=== PATIENT | male | born 1965 | race Caucasian/White ===

== ENCOUNTER 2019-05-13 08:13 | Inpatient (IN) ==
[2019-05-13] MEDS ORDERED: MoRPHine SULFATE 4 MG/ML 1 ML CARP\\VIAL IV STA ×2 (08:47→10:04)
--- NOTE | 2019-05-13 09:02 | Emergency Department Note ---
History of Present Illness General Chief complaint: Abdominal Pain Stated complaint: ABDOMINAL PAIN Time Seen by Provider: 05/13/19 08:37 History of Present Illness Maximum Pain Intensity: 7 This is a 53-year-old male that presents to the emergency department via private vehicle with complaints of "abdominal pain". The patient states that he has a history of HI, last of which was in 2009 and 2 stents were placed with subsequent 5 vessel bypass. He has been on clopidogrel for this. He notes that over the past few days he has been experiencing epigastric abdominal pain. This does not feel similar to previous HI. He notes some nausea but no vomiting. No change in bowel habits. He has never had this pain before. He rates the pain as a 7/10. Home Medications Home Medications Medication Instructions Recorded Confirmed Type aspirin 81 mg PO QAM 05/13/19 05/13/19 History atorvastatin 40 mg PO HS 05/13/19 05/13/19 History bupropion HCl 150 mg PO BID 05/13/19 05/13/19 History cholecalciferol (vitamin D3) 1,000 unit PO QAM 05/13/19 05/13/19 History [Vitamin D3] clopidogrel 75 mg PO HS 05/13/19 05/13/19 History hydrochlorothiazide 25 mg PO QAM 05/13/19 05/13/19 History lisinopril 40 mg PO QAM 05/13/19 05/13/19 History metoprolol succinate 100 mg PO QAM 05/13/19 05/13/19 History multivitamin 1 tab PO QAM 05/13/19 05/13/19 History Allergies Allergy/AdvReac Type Severity Reaction Status Date / Time Penicillins Allergy Unknown childhood Unverified 05/13/19 09:34 rxn Past Med/Surg History Medical History HTN (hypertension) History of elevated lipids Surgical History Hx of CABG Social History Preferred Language: Mohawk Communication Ability: Effective Beliefs That Will Affect Care: None Current Living Situation: Significant Other Other Information That Helps Us Care for You: No Feels Safe at Home: Yes Safety Concerns: Feels Safe At This Time Smoking Status: Current every day smoker Tobacco Type: cigarettes ; Cigarettes Per Day: 10 ; Do You Dip or Chew Tobacco: No ; Hx Alcohol Use: No Hx Substance Use: No Review of Systems A total of 10 systems reviewed and were otherwise negative Physical Exam Vital Signs Vital Signs - 24 hr 05/13/19 08:27 05/13/19 09:04 05/13/19 10:00 Temperature 36.7 C Temperature Source Oral Sepsis Recent Fever Within 48 Hours No Sepsis New/Unexplained Change in Mental Status No Sepsis Action Taken by Nursing No Action Required Pulse Rate 76 72 Pulse Rate [Apical] 70 Pulse Rhythm Regular Pulse Rhythm [Apical] Regular Pulse Strength [Apical] Normal Respiratory Rate 16 16 17 Respiratory Effort / Characteristics Non-Labored Spontaneous Respiratory Depth Normal Respiratory Pattern Regular Blood Pressure 149/97 H Blood Pressure [Left Arm] 167/102 H Blood Pressure Mean 114 Blood Pressure Mean [Left Arm] 123 Blood Pressure Position [Left Arm] Lying Pulse Oximetry 97 95 94 Oxygen Delivery Method Room Air Room Air Room Air 05/13/19 11:25 05/13/19 12:00 Temperature Temperature Source Sepsis Recent Fever Within 48 Hours Sepsis New/Unexplained Change in Mental Status Sepsis Action Taken by Nursing Pulse Rate Pulse Rate [Apical] 71 Pulse Rhythm Pulse Rhythm [Apical] Regular Pulse Strength [Apical] Normal Respiratory Rate 24 Respiratory Effort / Characteristics Non-Labored Spontaneous Non-Labored Spontaneous Respiratory Depth Normal Normal Respiratory Pattern Regular Regular Blood Pressure Blood Pressure [Left Arm] 174/105 H Blood Pressure Mean Blood Pressure Mean [Left Arm] 128 Blood Pressure Position [Left Arm] Lying Pulse Oximetry 98 Oxygen Delivery Method Room Air Room Air VITAL SIGNS - Vital signs and nursing notes were reviewed. Stable and afebrile. GENERAL -53-year-old male appearing his stated age who is in no acute distress. Communicates well with provider and answers questions appropriately. SKIN - Without rashes. No meningeal or petechial rash. HEAD - NC/AT. EYES - Sclera anicteric. EARS - No deformities of external structures noted on gross examination bilaterally. NOSE - Midline and without cyanosis. No epistaxis or purulent drainage noted. MOUTH/OROPHARYNX - Without perioral cyanosis. NECK - Neck with FROM. No nuchal rigidity. LUNGS - Chest wall symmetric without accessory muscle use, intercostals retractions, or central cyanosis. Normal vesicular breath sounds CTA B/L. No wheezes, rales, or rhonchi appreciated. CARDIAC - RRR with S1/S2. No murmur, rubs, or gallops appreciated. ABDOMEN - Abdominal contour normal without pulsations or visible masses. BS normoactive all four quadrants. There is epigastric abdominal tenderness to palpation. No palpable masses, hepatosplenomegaly, or ascites noted. EXTREMITIES - No clubbing or peripheral cyanosis. No pretibial edema present. +5/5 strength noted in UE/LE bilaterally. NEUROLOGIC - Cranial nerves II through XII grossly intact. PSYCH - A&O, and cooperates fully with examiner. Pt is very pleasant and interacts well with examiner. Course Administered Medications Ioversol (Optiray 320 100ml) 95 ml IV ONCE PRN PRN Reason: Interaction Checking Stop: 05/17/19 10:31 Last Admin: 05/13/19 10:32 Dose: 95 ml Documented by: [id number] Discontinued Medications Al Hydrox/Mg Hydrox/Simethicone () 1 dose PO ONE ONE Stop: 05/13/19 10:05 Last Admin: 05/13/19 10:20 Dose: 1 dose Documented by: [id number] Morphine Sulfate (Morphine Sulfate) 4 mg IV NOW STA Stop: 05/13/19 08:48 Last Admin: 05/13/19 09:12 Dose: 4 mg Documented by: [id number] Morphine Sulfate (Morphine Sulfate) 4 mg IV NOW STA Stop: 05/13/19 10:05 Last Admin: 05/13/19 10:20 Dose: 4 mg Documented by: [id number] Medical Decision Making Laboratory Data Result diagrams: 05/13/19 08:55 05/13/19 08:55 Lab Results 05/13/19 05/13/19 05/13/19 Range/Units 08:55 08:55 08:55 WBC 9.14 (4.8-10.8) K/uL RBC 6.15 H (4.7-6.1) M/uL Hgb 19.4 H (14.0-18.0) g/dL Hct 54.5 H (42-52) % MCV 88.6 (80-100) fL MCH 31.5 (25-34) pg MCHC 35.6 (32-36) g/dL RDW Std Deviation 47.0 H (36.4-46.3) fL RDW Coeff of Gall[place] 14.5 (11.5-14.5) % Plt Count 152 (130-400) K/uL MPV 10.1 (7.4-10.4) fL Immature Gran % (Auto) 0.4 % Neut % (Auto) 73.5 % Lymph % (Auto) 15.3 % [place] % (Auto) 8.4 % Eos % (Auto) 2.2 % Baso % (Auto) 0.2 % Immature Gran # (Auto) 0.04 H (0.00-0.02) K/uL Neut # (Auto) 6.71 H (1.4-6.5) K/uL Lymph # (Auto) 1.40 (1.2-3.4) K/uL [place] # (Auto) 0.77 H (0.11-0.59) K/uL Eos # (Auto) 0.20 (0-0.5) K/uL Baso # (Auto) 0.02 (0-0.2) K/uL PT 10.7 (9.0-12.0) Seconds INR 1.0 (0.9-1.1) APTT 26.3 (21.0-31.0) Seconds PTT Ratio 1.0 Sodium 143 (136-145) mmol/L Potassium 3.8 (3.5-5.1) mmol/L Chloride 108 H (98-107) mmol/L Carbon Dioxide 30 (21-32) mmol/L Anion Gap 5.0 (3-11) BUN 19 H (7-18) mg/dl Creatinine 1.03 (0.6-1.4) mg/dl Est Cr Clr Drug Dosing 83.7 ml/min Est GFR ( Amer) 94.3 Est GFR (Non-Af Amer) 81.4 BUN/Creatinine Ratio 18.5 (10-20) Glucose 109 H (70-99) mg/dl Calcium 9.3 (8.5-10.1) mg/dl Magnesium 2.3 (1.8-2.4) mg/dl Total Bilirubin 0.5 (0.2-1) mg/dl AST 22 (15-37) U/L ALT 36 (12-78) U/L Alkaline Phosphatase 104 (45-117) U/L POC Troponin I (0-0.045) ng/ml Troponin I < 0.015 (0-0.045) ng/ml Total Protein 7.9 (6.4-8.2) gm/dl Albumin 3.8 (3.4-5.0) gm/dl Globulin 4.1 H (2.5-4.0) gm/dl Albumin/Globulin Ratio 0.9 (0.9-2) Triglycerides (0-150) mg/dl Lipase 215 (73-393) U/L TSH 1.860 (0.300-4.500) uIu/ml Urine Color Urine Appearance (Clear) Urine pH (4.5-7.5) Ur Specific [place] (1.000-1.030) Urine Protein (Negative) Urine Glucose (UA) (Negative) Urine Ketones (Negative) Urine Blood (Negative) Urine Nitrite (Negative) Urine Bilirubin (Negative) Urine Urobilinogen (Negative) Ur Leukocyte Esterase (Negative) Urine WBC (Auto) (0-5) /hpf Urine RBC (Auto) (0-4) /hpf U Hyaline Cast (Auto) (0-5) /lpf U Epithel Cells (Auto) (0-5) /lpf Urine Bacteria (Auto) (Negative) 05/13/19 05/13/19 05/13/19 Range/Units 08:55 09:02 09:11 WBC (4.8-10.8) K/uL RBC (4.7-6.1) M/uL Hgb (14.0-18.0) g/dL Hct (42-52) % MCV (80-100) fL MCH (25-34) pg MCHC (32-36) g/dL RDW Std Deviation (36.4-46.3) fL RDW Coeff of Gall[place] (11.5-14.5) % Plt Count (130-400) K/uL MPV (7.4-10.4) fL Immature Gran % (Auto) % Neut % (Auto) % Lymph % (Auto) % [place] % (Auto) % Eos % (Auto) % Baso % (Auto) % Immature Gran # (Auto) (0.00-0.02) K/uL Neut # (Auto) (1.4-6.5) K/uL Lymph # (Auto) (1.2-3.4) K/uL [place] # (Auto) (0.11-0.59) K/uL Eos # (Auto) (0-0.5) K/uL Baso # (Auto) (0-0.2) K/uL PT (9.0-12.0) Seconds INR (0.9-1.1) APTT (21.0-31.0) Seconds PTT Ratio Sodium (136-145) mmol/L Potassium (3.5-5.1) mmol/L Chloride (98-107) mmol/L Carbon Dioxide (21-32) mmol/L Anion Gap (3-11) BUN (7-18) mg/dl Creatinine (0.6-1.4) mg/dl Est Cr Clr Drug Dosing ml/min Est GFR ( Amer) Est GFR (Non-Af Amer) BUN/Creatinine Ratio (10-20) Glucose (70-99) mg/dl Calcium (8.5-10.1) mg/dl Magnesium (1.8-2.4) mg/dl Total Bilirubin (0.2-1) mg/dl AST (15-37) U/L ALT (12-78) U/L Alkaline Phosphatase (45-117) U/L POC Troponin I < 0.03 (0-0.045) ng/ml Troponin I (0-0.045) ng/ml Total Protein (6.4-8.2) gm/dl Albumin (3.4-5.0) gm/dl Globulin (2.5-4.0) gm/dl Albumin/Globulin Ratio (0.9-2) Triglycerides 91 (0-150) mg/dl Lipase (73-393) U/L TSH (0.300-4.500) uIu/ml Urine Color Yellow Urine Appearance Clear (Clear) Urine pH 5.0 (4.5-7.5) Ur Specific [place] 1.020 (1.000-1.030) Urine Protein Negative (Negative) Urine Glucose (UA) Negative (Negative) Urine Ketones Negative (Negative) Urine Blood Trace H (Negative) Urine Nitrite Negative (Negative) Urine Bilirubin Negative (Negative) Urine Urobilinogen Negative (Negative) Ur Leukocyte Esterase Trace H (Negative) Urine WBC (Auto) 1-5 (0-5) /hpf Urine RBC (Auto) 0-4 (0-4) /hpf U Hyaline Cast (Auto) 1-5 (0-5) /lpf U Epithel Cells (Auto) 20-30 H (0-5) /lpf Urine Bacteria (Auto) Negative (Negative) Imaging Data Radiologist's Impression: XR chest 1V portable CLINICAL HISTORY: 53 years-old Male presenting with epigastric abd pain. TECHNIQUE: Portable upright AP view of the chest was obtained. COMPARISON: None. FINDINGS: Median sternotomy wires and mediastinal surgical clips. Atherosclerosis of the aortic arch. Cardiac silhouette borderline enlarged. No focal opacity. No large effusion or pneumothorax. Cervical fusion hardware noted. Upper abdomen normal. IMPRESSION: 1. No acute cardiopulmonary disease. Electronically signed by: Fan Arora M.D. 05/13/2019 9:[address] abd pelvis IV con only CLINICAL HISTORY: 53 years-old Male presenting with epigastric abd pain. TECHNIQUE: Multidetector CT of the abdomen and pelvis was performed after the administration of intravenous contrast. IV contrast: 95 mL of Optiray 320. One or more dose lowering techniques were used consistent with the principles of ALARA (as low as reasonably achievable), including automatic exposure control, mA or kV adjustment to individual patient size, and/or use of iterative reconstruction. COMPARISON: None. CT DOSE (mGy.cm): The estimated cumulative dose is 395.22 mGy.cm. FINDINGS: Benefits Advisor topogram: Unremarkable. Lung bases: Normal heart size. No pericardial or pleural effusion. Minimal dependent changes likely atelectasis. Liver: Normal morphology. No liver lesion. Patent hepatic vasculature. Biliary: No intrahepatic or extrahepatic biliary ductal dilatation. Normal gallbladder. Pancreas: Trace peripancreatic fat stranding along the pancreatic head and uncinate process. Few punctate calcifications in the pancreatic head possibly parenchymal or ductal. No peripancreatic fluid collection. No pancreatic parenchymal hypoenhancement. Spleen: Normal. Adrenal glands: Normal. Kidneys and ureters: Normal renal parenchyma. No nephrolithiasis or hydronephrosis. Trace renovascular calcification. Ureters nondistended. Bladder: Normal. Pelvic organs: Prostate and seminal vesicles normal. Bowel: Normal appendix. No bowel obstruction. Peritoneal cavity: No free fluid or intraperitoneal gas. Trace retroperitoneal fluid in the peripancreatic region. Lymph nodes: Few nonspecific mildly enlarged lymph nodes in the peripancreatic region likely reactive. Vasculature: Atherosclerosis of the normal caliber abdominal aorta. IVC patent. Abdominal wall: Normal. Musculoskeletal: Degenerative changes of the spine. IMPRESSION: 1. Interstitial edematous pancreatitis in the region of the pancreatic head and uncinate process. No acute peripancreatic fluid collection. No necrosis. 2. Punctate calcifications in the region of the pancreatic head matter be parenchymal, suggesting chronic pancreatitis, or ductal. Choledocholithiasis not excluded. Electronically signed by: Fan Arora M.D. 05/13/2019 10:45 AM MDM Narrative Patient was seen and evaluated as above B04. Review was performed of nursing notes and vital signs. After obtaining a thorough history and physical examination the above work up was performed. He presents to us today with epigastric abdominal pain. He is nontoxic on exam. It is reproducible in the epigastric region on palpation. Chest x-ray negative. He does have an extensive cardiac history therefore some focus was also placed in the cardiac region. EKG reveals posterior fascicular block but no definite evidence of a STEMI. Troponin x1 is negative. The CBC reveals no leukocytosis but there is evidence of hemoconcentration with hemoglobin at 19.4. There is no evidence of metabolic emergent process. Lipase negative. Urinalysis does not reveal infection. I did elect to obtain a CT scan given the patient's persistence of pain despite IV morphine x1 and found acute pancreatitis. I discussed these findings with the hospitalist as it was felt that given the patient's cardiac history and also pancreatic findings that further evaluation and management in the inpatient setting would be warranted. Patient was in agreement. Please refer to further documentation regarding his stay. Case was discussed with the attending physician. In the evaluation and treatment of this patient, the following differential diagnoses were considered: ASC, HI, Pneumonia, GERD, Cholecystitis, Ascending Cholangitis, Cholydocholithiasis, Bowel Obstruction, PE, Amongst Others. Impression & Plan Pancreatitis Discharge Plan Visit Data Chief Complaint: Abdominal Pain Stated Complaint: ABDOMINAL PAIN ED Provider: Herman Musa ED Midlevel Provider: Chacho Hall Discharge Problem: Pancreatitis Patient Disposition: Admitted As Inpatient Condition: Good Forms Stand Alone Forms: Call Back Authorization, [facility], Important Visit Information Prescriptions Prescriptions: No Action multivitamin Tablet 1 tab PO QAM RF: 0 atorvastatin 40 mg tablet 40 mg PO HS RF: 0 bupropion HCl 150 mg tablet sustained-release 12 hr 150 mg PO BID RF: 0 metoprolol succinate 100 mg tablet extended release 24 hr 100 mg PO QAM RF: 0 clopidogrel 75 mg tablet 75 mg PO HS RF: 0 aspirin 81 mg tablet,delayed release (DR/EC) 81 mg PO QAM RF: 0 hydrochlorothiazide 25 mg tablet 25 mg PO QAM RF: 0 lisinopril 40 mg tablet 40 mg PO QAM RF: 0 cholecalciferol (vitamin D3) [Vitamin D3] 1,000 unit (25 mcg) Tablet 1,000 unit PO QAM RF: 0 Referrals Referrals: Iram Hurd DO [Primary Care Provider] -
[2019-05-13 09:08] LABS: Basophils # (auto) 0.02 K/uL (0-0.2); Basophils % (auto) 0.2 %; Eosinophils % (auto) 2.2 %; Hematocrit (blood only) 54.5 % (42-52); Hemoglobin 19.4 g/dL (14.0-18.0); Immature Granulocytes # (auto) 0.04 K/uL (0.00-0.02); Immature Granulocytes % (auto) 0.4 %; Lymphocytes % (auto) 15.3 %; Mean Corpuscular Hgb Conc 35.6 g/dL (32-36); Mean Corpuscular Volume 88.6 fL (80-100); Mean Platelet Volume 10.1 fL (7.4-10.4); Monocytes # (auto) 0.77 K/uL (0.11-0.59); Monocytes % (auto) 8.4 %; Neutrophils # (auto) 6.71 K/uL (1.4-6.5); Neutrophils % (auto) 73.5 %; Platelet Count 152 K/uL (130-400); RDW Coefficient of Variation 14.5 % (11.5-14.5); Red Blood Count 6.15 M/uL (4.7-6.1); White Blood Count 9.14 K/uL (4.8-10.8)
[2019-05-13 09:19] LABS: Partial Thromboplastin Time 26.3 Seconds (21.0-31.0); Prothrombin Time 10.7 Seconds (9.0-12.0)
[2019-05-13 09:23] LABS: Alanine Aminotransferase 36 U/L (12-78); Albumin Level 3.8 gm/dl (3.4-5.0); Aspartate Aminotransferase 22 U/L (15-37); BUN Creatinine Ratio 18.5 (10-20); Blood Urea Nitrogen 19 mg/dl (7-18); Calcium 9.3 mg/dl (8.5-10.1); Carbon Dioxide 30 mmol/L (21-32); Chloride 108 mmol/L (98-107); Creatinine Clr Calc Pharmacy 83.7 ml/min; Est GFR (African American) 94.3; Est GFR (Non-African American) 81.4; Glucose 109 mg/dl (70-99); Magnesium 2.3 mg/dl (1.8-2.4); Potassium 3.8 mmol/L (3.5-5.1); Sodium 143 mmol/L (136-145)
[2019-05-13 09:26] LABS: Appearance Urine Clear (Clear); Bacteria Urine Automated Negative (Negative); Bilirubin Urine Negative (Negative); Blood Urine Trace (Negative); Color Urine Yellow; Epithelial Cell Urine Auto 20-30 /lpf (0-5); Glucose Urine UA Negative (Negative); Ketones Urine Negative (Negative); Leukocyte Esterase Urine Trace (Negative); Nitrite Urine Negative (Negative); Protein Urine Negative (Negative); RBC Urine Automated 0-4 /hpf (0-4); Urobilinogen Urine Negative (Negative)
--- NOTE | 2019-05-13 09:32 | XRay Report ---
XR chest 1V portable CLINICAL HISTORY: 53 years-old Male presenting with epigastric abd pain. TECHNIQUE: Portable upright AP view of the chest was obtained. COMPARISON: None. FINDINGS: Median sternotomy wires and mediastinal surgical clips. Atherosclerosis of the aortic arch. Cardiac s ilhouette borderline enlarged. No focal opacity. No large effusion or pneumothorax. Cervical fusion h ardware noted. Upper abdomen normal. IMPRESSION: 1. No acute cardiopulmonary disease. Electronically signed by: Fan Arora M.D. 05/13/2019 9:31 AM
[2019-05-13 09:34] LABS: Albumin Globulin Ratio 0.9 (0.9-2); Alkaline Phosphatase 104 U/L (45-117); Bilirubin,Total 0.5 mg/dl (0.2-1); Globulin 4.1 gm/dl (2.5-4.0); Total Protein 7.9 gm/dl (6.4-8.2); Troponin I < 0.015 ng/ml (0-0.045)
[2019-05-13] MEDS ORDERED: GI COCKTAIL ED USE PO ONE (10:04)
[2019-05-13] MEDS ORDERED: IOVERSOL 100ml IV PRN (10:32)
--- NOTE | 2019-05-13 10:47 | CT Scan Report ---
CT abd pelvis IV con only CLINICAL HISTORY: 53 years-old Male presenting with epigastric abd pain. TECHNIQUE: Multidetector CT of the abdomen and pelvis was performed after the administration of intra venous contrast. IV contrast: 95 mL of Optiray 320. One or more dose lowering techniques were used co nsistent with the principles of ALARA (as low as reasonably achievable), including automatic exposure control, mA or kV adjustment to individual patient size, and/or use of iterative reconstruction. COMPARISON: None. CT DOSE (mGy.cm): The estimated cumulative dose is 395.22 mGy.cm. FINDINGS: Coding Auditor topogram: Unremarkable. Lung bases: Normal heart size. No pericardial or pleural effusion. Minimal dependent changes likely a telectasis. Liver: Normal morphology. No liver lesion. Patent hepatic vasculature. Biliary: No intrahepatic or extrahepatic biliary ductal dilatation. Normal gallbladder. Pancreas: Trace peripancreatic fat stranding along the pancreatic head and uncinate process. Few punc strong calcifications in the pancreatic head possibly parenchymal or ductal. No peripancreatic fluid co llection. No pancreatic parenchymal hypoenhancement. Spleen: Normal. Adrenal glands: Normal. Kidneys and ureters: Normal renal parenchyma. No nephrolithiasis or hydronephrosis. Trace renovascula r calcification. Ureters nondistended. Bladder: Normal. Pelvic organs: Prostate and seminal vesicles normal. Bowel: Normal appendix. No bowel obstruction. Peritoneal cavity: No free fluid or intraperitoneal gas. Trace retroperitoneal fluid in the peripancr eatic region. Lymph nodes: Few nonspecific mildly enlarged lymph nodes in the peripancreatic region likely reactive . Vasculature: Atherosclerosis of the normal caliber abdominal aorta. IVC patent. Abdominal wall: Normal. Musculoskeletal: Degenerative changes of the spine. IMPRESSION: 1. Interstitial edematous pancreatitis in the region of the pancreatic head and uncinate process. No acute peripancreatic fluid collection. No necrosis. 2. Punctate calcifications in the region of the pancreatic head matter be parenchymal, suggesting ch ronic pancreatitis, or ductal. Choledocholithiasis not excluded. Electronically signed by: Fan Arora M.D. 05/13/2019 10:45 AM
[2019-05-13] MEDS ORDERED: OXYCODONE/ACETAMINOPHEN 5mg/325mg TAB PO PRN (12:13)
[2019-05-13] MEDS ORDERED: MoRPHine SULFATE 2 MG/ML CARP IV PRN (12:13)
[2019-05-13 12:52] LABS: Chol HDL Ratio 4; Cholesterol 163 mg/dl (0-200); HDL Cholesterol 41 mg/dl; LDL Cholesterol Calculated 103 mg/dl; Triglycerides 94 mg/dl (0-150); VLDL Cholesterol 19 mg/dl
[2019-05-13] MEDS ORDERED: ZOLPIDEM TARTRATE 5 MG TAB PO PRN (13:35)
[2019-05-13] MEDS ORDERED: MAGNESIUM HYDROXIDE SUSP 30 ML UDC PO PRN (13:35)
[2019-05-13] MEDS ORDERED: ONDANSETRON INJ 2 MG/ML 2 ML VIAL IV PRN (13:35)
[2019-05-13] MEDS ORDERED: POLYETHYLENE (MIRALAX) 17 GM PACK PO PRN (13:35)
[2019-05-13] MEDS ORDERED: ALUMINUM/MAGNESIUM SUSP 30 ML UDC PO PRN (13:35)
[2019-05-13] MEDS ORDERED: HydrALAZINE 10 MG TAB PO PRN (13:35)
[2019-05-13] MEDS ORDERED: PROMETHAZINE HCL 25 MG in SODIUM CHLORIDE 0.9% 50 ML IV PRN (13:48)
[2019-05-13] MEDS: SODIUM CHLORIDE 0.9% 1000ML 1,000 ML IV SCH (15:44)
[2019-05-13] MEDS: METOPROLOL SUCC 50MG EXT REL TAB PO SCH (15:54)
[2019-05-13] MEDS: CIPROFLOXACIN 400 MG/200 ML BAG IV SCH (15:54)
[2019-05-13] MEDS: metroNIDAZOLE 500 MG/100 ML BAG IV SCH ×2 (15:54→23:37)
--- NOTE | 2019-05-13 16:05 | Magnetic Resonance Report ---
MR MRCP CLINICAL HISTORY: 53 years-old Male presenting with acute pancreatitis. TECHNIQUE: Multisequence, multiplanar MR imaging of the abdomen was performed without the use of intr avenous contrast. Dedicated MRCP protocol was utilized. 3-D volumetric and/or maximum intensity proje ction (MIP) images were subsequently reconstructed for review. IV contrast: None. COMPARISON: CT performed earlier today. FINDINGS: Localizer images: Unremarkable. Lung bases: Normal heart size. No pericardial or pleural effusion. Lung base clear. Liver: Normal morphology. Biliary: Conventional intrahepatic biliary bifurcation. No intrahepatic or extrahepatic biliary ducta l dilatation. No choledocholithiasis. Normal gallbladder. Pancreas: Peripancreatic inflammatory change in the region of the pancreatic head and uncinate proces s. No parenchymal or peripancreatic fluid collection. No pancreatic ductal dilatation. Spleen: Normal noncontrast appearance. Adrenal glands: Normal noncontrast appearance. Kidneys and ureters: Normal noncontrast appearance. No hydronephrosis. Normal ureters. Bowel: Normal noncontrast appearance. No bowel obstruction. Peritoneal cavity: No free fluid. Lymph nodes: No gross lymphadenopathy allowing for noncontrast technique. Vasculature: Normal noncontrast appearance. Abdominal wall: Normal. Musculoskeletal: Normal. IMPRESSION: 1. No cholelithiasis or choledocholithiasis. No biliary ductal dilatation. 2. Redemonstration of the interstitial edematous pancreatitis. Electronically signed by: Fan Arora M.D. 05/13/2019 4:04 PM
--- NOTE | 2019-05-13 16:55 | History & Physical Report ---
Date of Service May 13, 2019 Assessment & Plan (1) Pancreatitis: Acute pancreatitis -Admit to PCU on telemetry -Vital signs every 4 hours -IV normal saline 100 cc/h -Keep n.p.o. -GI consult -Pain management -Started empirically IV ciprofloxacin 400 mg daily and metronidazole 500 mg IV every 8 hours -DVT prophylaxis with Lovenox SC 40 mg daily -Full code Present on Admission?: Yes (2) Hypertension: Stable, continue home dose of aspirin 81 mg p.o. every morning, lisinopril 40 mg p.o. every morning, metoprolol succinate 100 mg p.o. every morning. Present on Admission?: Yes (3) Hx of CABG: Continue clopidogrel 75 mg p.o. daily and aspirin 81 mg p.o. daily Present on Admission?: Yes (4) Hyperlipidemia: Continue atorvastatin 40 mg p.o. nightly Present on Admission?: Yes (5) Coronary artery disease: As discussed above Present on Admission?: Yes (6) Nicotine dependence: Patient said that he cut down on smoking from 1 pack/day to 5 cigarettes/day. He refused nicotine patch. He prefers to take bupropion 150 mg p.o. twice daily Present on Admission?: Yes History of Present Illness Chief Complaint: Abdominal pain Primary Care Provider: Iram Hurd, 53 years old male past medical history of coronary artery disease and CABG 5 vessels, hypertension and hyperlipidemia presents to the emergency room with complaint of abdominal pain that started on Tuesday and did not improve since then. Patient said he thought that he pulled a muscle and he took some ibuprofen for the upper abdominal pain but that did not relieve the pain. Patient takes regularly his cardiac medication and he just moved from [place] approximately 1 year ago. Patient said that he is trying to get appointment with cardiology but for 1 year he did not see dish stacker. Patient reports that CABG surgery was done in 2009 in [place] and since then he is doing okay. Patient reports no fever chills headache shortness of breath frequency urgency melena hemoptysis. Labs reviewed: White blood cell count 9.14 hemoglobin 19.4 hematocrit 54.5 platelets 152, INR 1.0 PT 10.7 PTT 1, sodium 143 potassium 3.8 chloride 108 BUN 19 creatinine 1.03 GFR 83.7 glucose 109, ALT 36 AST 22, troponin less than 0.015, triglycerides 94, cholesterol 163, LDL 103, VLDL 19, HDL 41, lipase 215, TSH 1.860. MRCP was done and showed no cholelithiasis or choledocholithiasis. No biliary duct dilatation. Redemonstrated of the interstitial adenomatosis pancreatitis. Allergies Allergy/AdvReac Type Severity Reaction Status Date / Time Penicillins Allergy Unknown childhood Unverified 05/13/19 09:34 rxn Home Medications Home Medications Medication Instructions Recorded Confirmed Type aspirin 81 mg PO QAM 05/13/19 05/13/19 History atorvastatin 40 mg PO HS 05/13/19 05/13/19 History bupropion HCl 150 mg PO BID 05/13/19 05/13/19 History cholecalciferol (vitamin D3) 1,000 unit PO QAM 05/13/19 05/13/19 History [Vitamin D3] clopidogrel 75 mg PO HS 05/13/19 05/13/19 History hydrochlorothiazide 25 mg PO QAM 05/13/19 05/13/19 History lisinopril 40 mg PO QAM 05/13/19 05/13/19 History metoprolol succinate 100 mg PO QAM 05/13/19 05/13/19 History multivitamin 1 tab PO QAM 05/13/19 05/13/19 History Past Med/Surg History Medical History HTN (hypertension) History of elevated lipids Surgical History Hx of CABG Social History Preferred Language: [place] Communication Ability: Effective Beliefs That Will Affect Care: None Current Living Situation: Significant Other Other Information That Helps Us Care for You: No Feels Safe at Home: Yes Safety Concerns: Feels Safe At This Time Smoking Status: Current every day smoker Tobacco Type: cigarettes ; Cigarettes Per Day: 10 ; Do You Dip or Chew Tobacco: No ; Hx Alcohol Use: No Hx Substance Use: No Review of Systems Review of Systems: All systems reviewed & are unremarkable except as noted in HPI & below Physical Exam Constitutional: WD/WN, vitals as above well developed and + obese Eyes: PERRL, conjunctivae normal, anicteric sclerae ENMT: external ear and nose normal, oropharynx normal Neck: trachea midline, no thyromegaly Respiratory: normal respiratory effort, + dullness to percussion and + hyperresonance to percussion Auscultation: + wheezes Cardiovascular: RRR, no murmur, no edema Chest (Breasts): normal inspection/palpation of breasts Gastrointestinal (Abdomen): normal bowel sounds, soft, nontender, no hepatosplenomegaly Inspection/Auscultation: + abdomen distended (Mildly distended) Percussion/Palpation: + abdomen tender (Mildly tender), abdomen soft, + dullness to percussion and + tympanic to percussion Musculoskeletal: no cyanosis or clubbing, extremities motor strength 5/5 Skin: no rashes, warm and dry Neurologic: patellar DTR's 2+ bilat, sensation intact Psychiatric: A+Ox3, euthymic affect Genitourinary: no testicular masses, no penis abnormality Lymphatic: no cervical or axillary lymphadenopathy Results & Data Vital Signs (Past 12 Hours) Vital Signs Temp Pulse Pulse Resp BP BP Pulse Ox 05/13/19 15:17 36.5 C 71 18 180/102 H 94 05/13/19 13:35 36.7 C 70 16 166/106 H 96 05/13/19 13:20 69 15 167/103 H 96 05/13/19 12:00 71 24 174/105 H 98 05/13/19 10:00 70 17 167/102 H 94 05/13/19 09:04 72 16 95 05/13/19 08:27 36.7 C 76 16 149/97 H 97 Code Status & VTE Plan Code Status Full code VTE Prophylaxis Plan VTE Prophylaxis will be ordered: Yes PG Care Time/CCT Total # of Minutes Spent Total Time Spent with Patient: Total time spent is greater than 50% in coordination of care (as documented) at patient's floor/unit and/or counseling patient:
[2019-05-13] MEDS: ENOXAPARIN INJ 40 MG/0.4 ML SYR SQ SCH (17:33)
[2019-05-13] MEDS: BuPROPion SR 150 MG TABCR PO SCH (17:33)
[2019-05-13] MEDS: NITROGLYCERIN 2% OINTMENT 30GM TUBE EXT SCH ×2 (17:34→23:36)
[2019-05-13] MEDS: ACETAMINOPHEN 325 MG TAB PO PRN (18:18)
[2019-05-13] MEDS ORDERED: CLOPIDOGREL BISULFATE 75 MG TAB PO SCH (21:00)
[2019-05-13] MEDS ORDERED: ATORVASTATIN 40 MG TAB PO SCH (21:00)
[2019-05-14] MEDS: ACETAMINOPHEN 325 MG TAB PO PRN ×2 (00:39→05:17)
[2019-05-14] MEDS: SODIUM CHLORIDE 0.9% 1000ML 1,000 ML IV SCH ×2 (02:15→13:18)
[2019-05-14] MEDS: CIPROFLOXACIN 400 MG/200 ML BAG IV SCH ×2 (03:33→17:05)
[2019-05-14] MEDS: NITROGLYCERIN 2% OINTMENT 30GM TUBE EXT SCH (05:14)
[2019-05-14 06:29] LABS: Basophils # (auto) 0.01 K/uL (0-0.2); Basophils % (auto) 0.1 %; Eosinophils # (auto) 0.18 K/uL (0-0.5); Eosinophils % (auto) 1.9 %; Hemoglobin 16.4 g/dL (14.0-18.0); Immature Granulocytes # (auto) 0.03 K/uL (0.00-0.02); Immature Granulocytes % (auto) 0.3 %; Lymphocytes # (auto) 1.83 K/uL (1.2-3.4); Lymphocytes % (auto) 19.1 %; Mean Corpuscular Hgb Conc 34.9 g/dL (32-36); Mean Corpuscular Volume 88.3 fL (80-100); Mean Platelet Volume 10.2 fL (7.4-10.4); Monocytes % (auto) 7.3 %; Neutrophils # (auto) 6.83 K/uL (1.4-6.5); Neutrophils % (auto) 71.3 %; Platelet Count 128 K/uL (130-400); RDW Coefficient of Variation 14.1 % (11.5-14.5); RDW Standard Deviation 45.7 fL (36.4-46.3); Red Blood Count 5.32 M/uL (4.7-6.1); White Blood Count 9.58 K/uL (4.8-10.8)
[2019-05-14 06:57] LABS: Albumin Globulin Ratio 0.9 (0.9-2); BUN Creatinine Ratio 16.4 (10-20); Bilirubin,Total 0.6 mg/dl (0.2-1); Calcium 7.9 mg/dl (8.5-10.1); Creatinine Clr Calc Pharmacy 114.9 ml/min; Est GFR (African American) 119.7; Est GFR (Non-African American) 103.3; Globulin 3.3 gm/dl (2.5-4.0); Potassium 3.1 mmol/L (3.5-5.1); Total Protein 6.3 gm/dl (6.4-8.2)
[2019-05-14] MEDS: metroNIDAZOLE 500 MG/100 ML BAG IV SCH ×2 (08:28→16:05)
[2019-05-14] MEDS: METOPROLOL SUCC 50MG EXT REL TAB PO SCH (08:28)
[2019-05-14] MEDS: BuPROPion SR 150 MG TABCR PO SCH ×2 (08:28→16:04)
[2019-05-14] MEDS ORDERED: CHOLECALCIFEROL 1,000 UNITS TAB PO SCH (09:00)
[2019-05-14] MEDS ORDERED: ASPIRIN 81 MG ECTAB PO SCH (09:00)
[2019-05-14] MEDS ORDERED: LISINOPRIL 40 MG TAB PO SCH (09:00)
[2019-05-14] MEDS ORDERED: FAMOTIDINE 20 MG in SYRINGE 3 ML IV SCH (09:00)
[2019-05-14] MEDS ORDERED: MULTIVITAMIN TAB PO SCH (09:00)
[2019-05-14] MEDS ORDERED: POTASSIUM CHLORIDE 20 MEQ TABCR PO STA (10:45)
[2019-05-14] MEDS ORDERED: AMLODIPINE BESYLATE 5 MG TAB PO SCH (11:00)
[2019-05-14] MEDS ORDERED: FUROSEMIDE 20 MG TAB PO SCH (11:00)
--- NOTE | 2019-05-14 11:29 | History & Physical Report ---
Date of Service May 14, 2019 History of Present Illness Chief Complaint: Abdominal pain 53 yo male for which GI is being consulted for abdominal pain. Admitted yesterday with abdominal pain - lipase and lft's normal but imaging MRCP showing edematous pancreatitis. Received IV fulids, empiric cipro/flagyl, pepcid. Pain improved this morning. feeling better. Etiology not gallstones per workup thus far. Denies alcohol use. 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 He reports when he came in his abdominal pain was 7/10 and now is 0/10. Tolerated lunch. Denies recent travel. No history of known autoimmune problems. No weight loss or pale colored stools. No history of recent travel, bug bites, new medications or supplements. Prior CABG in the past in 2009 - recent dose adjustment of Lisinopril to bid, on hctz as an outpatient. Primary Care Provider: Iram Hurd DO Allergies Allergy/AdvReac Type Severity Reaction Status Date / Time Penicillins Allergy Unknown childhood Unverified 05/13/19 09:34 rxn Home Medications Home Medications Medication Instructions Recorded Confirmed Type aspirin 81 mg PO QAM 05/13/19 05/13/19 History atorvastatin 40 mg PO HS 05/13/19 05/13/19 History bupropion HCl 150 mg PO BID 05/13/19 05/13/19 History cholecalciferol (vitamin D3) 1,000 unit PO QAM 05/13/19 05/13/19 History [Vitamin D3] clopidogrel 75 mg PO HS 05/13/19 05/13/19 History hydrochlorothiazide 25 mg PO QAM 05/13/19 05/13/19 History lisinopril 40 mg PO QAM 05/13/19 05/13/19 History metoprolol succinate 100 mg PO QAM 05/13/19 05/13/19 History multivitamin 1 tab PO QAM 05/13/19 05/13/19 History Past Med/Surg History Medical History HTN (hypertension) History of elevated lipids Surgical History Hx of CABG Social History Preferred Language: Pashto Communication Ability: Effective Beliefs That Will Affect Care: None Current Living Situation: Significant Other Other Information That Helps Us Care for You: No Feels Safe at Home: Yes Safety Concerns: Feels Safe At This Time Smoking Status: Current every day smoker Tobacco Type: cigarettes ; Cigarettes Per Day: 10 ; Do You Dip or Chew Tobacco: No ; Hx Alcohol Use: No Hx Substance Use: No Review of Systems All systems reviewed & are unremarkable except as noted in HPI & below Physical Exam Physical Exam: Well nourished male in nad Constitutional: well developed and well nourished; no acute distress Eyes: No scleral icterus Gastrointestinal (Abdomen): normal bowel sounds, soft, nontender, no hepatosplenomegaly Neurologic: PERRL, EOMI, accommodation nl, no face palsy, no dysarthria Results & Data Vital Signs (Past 12 Hours) Vital Signs Temp Pulse Resp BP Pulse Ox 05/14/19 07:02 36.5 C 67 16 165/98 H 95 05/14/19 03:40 36.6 C 67 16 144/89 H 94 05/14/19 00:00 36.9 C 68 16 154/94 H 96 CBC/lft's reviewed and normal CT scan abdomen and MRCP reviewed. Code Status & VTE Plan VTE Prophylaxis Plan VTE Prophylaxis will be ordered: Yes Supervising Physician Co-Signing Physician Notes 53 yo male with prior cabg in 2009, admitted with abdominal pain,a nd fount to have pancreatitis on imaging. Symptomatically improving with IV fluids overnite and Pepcid. Now tolerating PO. Etiology- gallstones have been ruled out, ? tg. denies etoh use Would check IgG4 for completeness to rule out autoimmune pancreatitis. Tolerate diet as tolerated given now further pain. Outpt eus in 6-8 weeks.
[2019-05-14] MEDS: ENOXAPARIN INJ 40 MG/0.4 ML SYR SQ SCH (17:25)
--- NOTE | 2019-05-14 17:56 | Discharge Summary ---
Date of Service May 14, 2019 Admission HPI Per Admitting Provider 53 years old male past medical history of coronary artery disease and CABG 5 vessels, hypertension and hyperlipidemia presents to the emergency room with complaint of abdominal pain that started on Tuesday and did not improve since then. Patient said he thought that he pulled a muscle and he took some ibuprofen for the upper abdominal pain but that did not relieve the pain. Patient takes regularly his cardiac medication and he just moved from [place] approximately 1 year ago. Patient said that he is trying to get appointment with cardiology but for 1 year he did not see ballast regulator operator. Patient reports that CABG surgery was done in 2009 in [place] and since then he is doing okay. Patient reports no fever chills headache shortness of breath frequency urgency melena hemoptysis. Labs reviewed: White blood cell count 9.14 hemoglobin 19.4 hematocrit 54.5 platelets 152, INR 1.0 PT 10.7 PTT 1, sodium 143 potassium 3.8 chloride 108 BUN 19 creatinine 1.03 GFR 83.7 glucose 109, ALT 36 AST 22, troponin less than 0.015, triglycerides 94, cholesterol 163, LDL 103, VLDL 19, HDL 41, lipase 215, TSH 1.860. MRCP was done and showed no cholelithiasis or choledocholithiasis. No biliary duct dilatation. Re demonstrated of the interstitial adenomatosis pancreatitis. Principal Diagnosis Acute pancreatitis Discharge Exam Constitutional WD/WN, vitals as above Eyes PERRL, conjunctivae normal, anicteric sclerae ENMT external ear and nose normal, oropharynx normal Neck trachea midline, no thyromegaly Respiratory normal respiratory effort, lungs clear to auscultation Cardiovascular RRR, no murmur, no edema Gastrointestinal (Abdomen) normal bowel sounds, soft, nontender, no hepatosplenomegaly Musculoskeletal Extremities: extremities normal to inspection; no cyanosis and no clubbing Skin no rashes, warm and dry Neurologic moves all extremities and awake; no focal motor deficits Psychiatric A+Ox3, euthymic affect Discharge Data Allergies Allergy/AdvReac Type Severity Reaction Status Date / Time Penicillins Allergy Unknown childhood Unverified 05/13/19 09:34 rxn Consultations Gastroenterology Ordered Studies 05/13/19 10:04 CT abd pelvis IV con only Stat 05/13/19 13:55 MR MRCP Routine Hospital Course (1) Pancreatitis: Patient presented with a mild acute pancreatitis with epigastric abdominal pain. Found to have inflammation of the pancreas on CT scan. Triglycerides within normal limits, no cholelithiasis or choledocholithiasis on MRCP, no history of alcohol use at all. Lipase was actually normal. LFTs normal. He did have his lisinopril increased to 40 mg daily approximately 1 month ago. He has been on hydrochlorothiazide for many years. It is possible that the lisinopril perhaps induce this. He was treated in the standard fashion with copious IV fluids, made n.p.o. He was also given empiric IV antibiotics with Cipro and Flagyl x24 hours. He had significant rapid improvement in his abdominal pain was tolerating a low- fat diet at the time of discharge. He was seen in consultation by gastroenterology and needs to have an EUS in 6 to 8 weeks which will be arranged for him after discharge. This will rule out any pancreatic neoplasm. Decrease lisinopril back to usual dose of 20 mg daily, discontinued HCTZ and started furosemide 20 mg daily. Added amlodipine as below. Stable for discharge to home on low-fat diet with close follow-up (2) Hypertension: Blood pressures were elevated here Changes as above given possibility of recent lisinopril increased causing pancreatitis Decrease lisinopril back to 20 mg once daily -Add on amlodipine 5 mg once daily -DC HCTZ and start furosemide 20 mg once daily -Continue home dose of metoprolol Follow blood pressures closely as an outpatient Repeat blood pressure prior to discharge was in the 150s over 70s range (3) Hx of CABG: Has a history of 5 vessel CABG with 2 stents prior to that. He has not established with a ballast regulator operator since moving here from [place] 1 year ago. He has no anginal symptoms Troponin here was negative -Continue metoprolol, clopidogrel 75 mg p.o. daily and aspirin 81 mg p.o. daily, JACQUES inhibitor No history of CHF as per report -Encourage smoking cessation -We will get him established with cardiology upon discharge (4) Hyperlipidemia: Continue atorvastatin 40 mg p.o. nightly (5) Coronary artery disease: As discussed above (6) Nicotine dependence: Encouraged continued smoking cessation -Continue bupropion 150 mg SR p.o. twice daily (7) DVT prophylaxis: Lovenox SQ was provided Disposition-stable for discharge to home with close follow-up with PCP Total Time Total Time Spent Total Time Spent (In Minutes): Greater than 30 minutes Total Time Includes: Examination of the Patient, Discharge Planning and Medication Reconciliation Discharge Plan Discharge Items Patient Disposition: Home - Self-Care Reason For Visit: ACUTE PANCREATITIS Discharge Diagnosis: Acute pancreatitis Condition: Good Discharge Goals: Decrease discomfort, Diagnostic testing, Improve disease control, Learn about illness and Therapeutic intervention Activity: Resume your previous activity Bathing: No limitations Driving/Machine Use: No limitations Driving/Machine Use Comment: Do not return to work until Tuesday05/16/19 Non-emergency contact: Primary Care Provider and Sustainable Landscape Architect Call non-emergency contact if: you have any medication questions Follow-up/Referrals: Nikolas Waldron MD [Physician] - 05/24/19 12:30 pm (Please, follow up at [facility] Cardiology Office with Dr. Eren Waldron on May 24 at 12:45 pm (arrive 12:30 pm). *The office is located in [address] of [facility]. This is the big building next to this [facility]. If you need to change this appointment, call the office at [phone].) Iram Hurd DO [Primary Care Provider] - 05/18/19 11:30 am (Please, follow up with Dr. Hurd on TuesdayMay 18 at 11:30 am. *If you need to change this appointment, call the office at [phone].) Diet: Heart Healthy and Low Fat Addtl Provider Instructions: You were admitted with a mild acute pancreatitis of unknown cause. There is a small chance your pancreatitis could have been caused by your recent increase in dose of lisinopril. Your dose will be reduced back to 20mg daily and you were started on amlodipine 5mg daily as well. Your HCTZ was stopped just in case this contributed to your pancreatitis (although not as likely) and was replaced with furosemide 20mg daily. Please have your doctor repeat your lab work to check your kidneys and electrolytes at your follow up visit. You will need to have an endoscopic ultrasound to take a closer look at your pancreas once the inflammation settles down to make sure you don't have a cyst or growth on your pancreas. Please follow up with your PCP as scheduled for you. We also got you set up with Dr. Waldron for Cardiology to get established given your history of heart disease. Prescriptions: New amlodipine [Norvasc] 5 mg Tablet 5 mg PO QAM Qty: 30 RF: 0 furosemide 20 mg Tablet 20 mg PO QAM Qty: 30 RF: 0 potassium chloride 10 mEq tablet extended release 10 meq PO DAILY Qty: 30 RF: 0 Continued multivitamin Tablet 1 tab PO QAM RF: 0 atorvastatin 40 mg tablet 40 mg PO HS RF: 0 bupropion HCl 150 mg tablet sustained-release 12 hr 150 mg PO BID RF: 0 metoprolol succinate 100 mg tablet extended release 24 hr 100 mg PO QAM RF: 0 clopidogrel 75 mg tablet 75 mg PO HS RF: 0 aspirin 81 mg tablet,delayed release (DR/EC) 81 mg PO QAM RF: 0 cholecalciferol (vitamin D3) [Vitamin D3] 1,000 unit (25 mcg) Tablet 1,000 unit PO QAM RF: 0 Changed lisinopril 40 mg tablet 20 mg PO QAM Qty: 0 RF: 0 Discontinued hydrochlorothiazide 25 mg tablet 25 mg PO QAM RF: 0 Stand-Alone Forms: Call Back Authorization, [facility] Discharge Orders: Discharge Order (Routine); Ordered 05/14/19 Ordered By: Anuradha Weston Admission Data Admit Date/Time: 05/13/19 12:13 Attending Provider: Anuradha Weston Admit Provider: Mariella Royal Primary Care Provider: Iram Hurd Other Providers: Alivia Irvin Suarna Service: Telemetry Other Interventions: Discharge Summary Assessment (RN) Last Done: 05/14/19 17:58 Pending Studies at Discharge: No DC Date/Time DO NOT enter until pt leaves facility: 05/14/19 18:32
== END 2019-05-14 18:32 | disposition home or self-care (01) | DRG 440 ==
LOC: ED 08:13 → SUATTDRO 12:13 → 2E 12:13